=== PATIENT | female | born 2000 | race Hispanic/Latino ===

== ENCOUNTER 2019-05-30 16:47 | Observation (INO) | payer MEDICAID, OTHER ==
[~2019-05-30] VITALS: Ht 154.9 cm; Wt 58.1 kg
[2019-05-30 17:11] VITALS: BP 102/66
[2019-05-30] MEDS: DEXTROSE 5%-LACTATED RINGERS 1,000 ML IV SCH (18:21)
[2019-05-30 18:28] LABS: HEMATOCRIT 33.8 % (36-48); MEAN CORPUSCULAR HEMOGLOBIN 22.5 pg (27.0-33.0); MEAN CORPUSCULAR HGB CONC 32.7 g/dL (32.0-36.0); MEAN CORPUSCULAR VOLUME 68.7 fL (80-100); PLATELET COUNT (AUTO) 236 K/uL (130-400); RED BLOOD CELL COUNT(AUTO) 4.92 MIL/uL (4.00-5.50); RED CELL DISTRIBUTION WIDTH 18.7 % (11.0-15.5); WHITE BLOOD COUNT (AUTO) 6.3 K/uL (4.8-10.8)
[2019-05-30 18:34] LABS: POTASSIUM 3.4 mmol/L (3.5-5.1)
[2019-05-30] MEDS: CEFAZOLIN SODIUM 1 GM VIAL IVP SCH (18:41)
[2019-05-30] MEDS: ONDANSETRON HCL 4 MG/2 ML VIAL IVP PRN (18:41)
[2019-05-30 19:23] VITALS: BP 93/53
--- NOTE | 2019-05-30 19:45 | NUR ---
DR. GAMBLE HERE AND SAW PT; NO NEW ORDERS NOTED AT THIS TIME.
[2019-05-30 23:32] VITALS: BP 93/56
[2019-05-31] MEDS: DEXTROSE 5%-LACTATED RINGERS 1,000 ML IV SCH ×4 (00:58→18:41)
[2019-05-31] MEDS: CEFAZOLIN SODIUM 1 GM VIAL IVP SCH ×3 (01:43→18:37)
[2019-05-31 04:09] VITALS: BP 93/59
[2019-05-31 07:27] VITALS: BP 93/54
--- NOTE | 2019-05-31 08:05 | NUR ---
MD FOX ROUNDING ON PATIENT. POC DISCUSSED. KEEP NPO EXCEPT FOR ICE CHIPS.
[2019-05-31 11:52] VITALS: BP 93/54
[2019-05-31] MEDS: ONDANSETRON HCL 4 MG/2 ML VIAL IVP PRN ×2 (13:26→18:48)
--- NOTE | 2019-05-31 14:45 | NUR ---
RD Notification Pt 10 WKS with Hyperemesis. Upon visit, RD provided Hyperemesis nutrition recommendations. RD reviewed reference materials with Pt. RD discussed with Pt first and development of Hyperemesis. Pt with no questions and displayed minimal interest, however answered all of RD questions and accepted educational materials. RD to continue to monitor. Please notify RD as additional nutrition concerns arise. Thank you. Addendum: 05/31/19 at [address] RD Amended: Links added.
[2019-05-31 16:52] VITALS: BP 93/60
[2019-05-31 19:30] VITALS: BP 103/61
[2019-05-31 23:37] VITALS: BP 99/62
[2019-06-01] MEDS: CEFAZOLIN SODIUM 1 GM VIAL IVP SCH ×2 (01:48→09:59)
[2019-06-01] MEDS: DEXTROSE 5%-LACTATED RINGERS 1,000 ML IV SCH ×2 (01:48→08:33)
[2019-06-01 03:48] VITALS: BP 95/57
[2019-06-01 07:33] VITALS: BP 97/58
[2019-06-01] MEDS: ONDANSETRON HCL 4 MG/2 ML VIAL IVP PRN (10:17)
[2019-06-01 11:21] VITALS: BP 99/52
--- NOTE | 2019-06-01 11:48 | NUR ---
DIET PT STATED WAS ABLE TO EAT 1/2 BANANA AND 1/2 TOAST, NO EMESIS, FELT NAUSEOUS ONLY AFTER ANCEF WAS PUSHED BUT ZOFRAN HELPED NAUSEA GO AWAY
--- NOTE | 2019-06-01 16:35 | NUR ---
DISCHARGE PT STABLE, NO PAIN, NO COMPLAINTS; PT LEFT UNIT, VIA WHEELCHAIR, STILL , ACCOMPANIED BY RN AND SPOUSE CARRYING ALL PERSONAL BELONGINGS, INSTRUCTIONS, AND PRESCRIPTION; PT LEFT FACILITY IN PERSONAL VEHICLE
== END 2019-06-01 16:35 | disposition home or self-care (01) ==
LOC: WSH 16:47 → INTOOBSV 16:47
PROVIDERS: ADMIT Specialist; ATTEND Specialist
DX: O23.41 Unspecified infection of urinary tract in pregnancy, first trimester (principal); O21.0 Mild hyperemesis gravidarum; Z3A.10 10 weeks gestation of pregnancy
CPT/HCPCS: 36415; 80051; 85027; 96361 ×3; 96374; 96375; 96376 ×2; G0378 ×46; J0690 ×6; J2405 ×4

== ENCOUNTER 2020-09-01 10:16 | Observation (INO) | payer OTHER, MEDICAID ==
[~2020-09-01] VITALS: Ht 154.9 cm; Wt 63.5 kg
[~2020-09-01 10:16] MED LIST: FERR-82 PO; ONDA4TAB4 PO; PREN-154 PO
== END 2020-09-01 11:02 | disposition home or self-care (01) ==
LOC: LDH 10:16
PROVIDERS: ADMIT Specialist; ATTEND Specialist
DX: Z34.93 Encounter for supervision of normal pregnancy, unspecified, third trimester (principal); Z3A.30 30 weeks gestation of pregnancy
CPT/HCPCS: 59025; 76819; G0378

== ENCOUNTER 2020-09-04 11:29 | Observation (INO) | payer OTHER, MEDICAID ==
[~2020-09-04] VITALS: Ht 157.5 cm; Wt 66.7 kg
[2020-09-04 12:31] VITALS: BP 104/57
== END 2020-09-04 13:05 | disposition home or self-care (01) ==
LOC: LDH 11:29
PROVIDERS: ADMIT Specialist; ATTEND Specialist
DX: Z34.93 Encounter for supervision of normal pregnancy, unspecified, third trimester (principal); Z3A.30 30 weeks gestation of pregnancy
CPT/HCPCS: 59025; 76819; G0378

== ENCOUNTER 2020-09-08 09:29 | Observation (INO) | payer MEDICAID, OTHER ==
[~2020-09-08] VITALS: Ht 154.9 cm; Wt 64.0 kg
[2020-09-08 09:53] VITALS: BP 108/68
== END 2020-09-08 11:29 | disposition home or self-care (01) ==
LOC: LDH 09:29
PROVIDERS: ADMIT Specialist; ATTEND Specialist
DX: Z34.93 Encounter for supervision of normal pregnancy, unspecified, third trimester (principal); Z3A.31 31 weeks gestation of pregnancy
CPT/HCPCS: 59025; 76819; G0378 ×2

== ENCOUNTER 2020-10-02 14:16 | Observation (INO) | payer MEDICAID, OTHER ==
[~2020-10-02] VITALS: Ht 154.9 cm; Wt 74.4 kg
== END 2020-10-02 15:26 | disposition home or self-care (01) ==
LOC: EDH 14:16 → LDH 14:34
PROVIDERS: ADMIT Specialist; ATTEND Specialist
DX: O69.81X0 Labor and delivery complicated by cord around neck, without compression, not applicable or unspecified (principal); Z3A.34 34 weeks gestation of pregnancy
CPT/HCPCS: 59025; 99284; G0378

== ENCOUNTER 2020-10-11 10:08 | Inpatient (IN) | payer MEDICAID ==
[~2020-10-11] VITALS: Ht 154.9 cm; Wt 64.4 kg
[2020-10-11] MEDS ORDERED: OXYTOCIN-LR 20 UNITS/1000 ML 1,000 ML IV SCH (11:00)
[2020-10-11] MEDS ORDERED: AMPICILLIN 2GM+NS 100ML 100 ML IV SCH (11:00)
[2020-10-11] MEDS ORDERED: MEPERIDINE-PF 50 MG/ML SYG IVP PRN (11:00)
[2020-10-11] MEDS ORDERED: PROMETHAZINE HCL 25 MG/ML 1ML AMPULE IM PRN (11:00)
[2020-10-11 11:31] LABS: HEMATOCRIT 29.3 % (36-48); MEAN CORPUSCULAR HEMOGLOBIN 21.3 pg (27.0-33.0); MEAN CORPUSCULAR HGB CONC 29.7 g/dL (32.0-36.0); MEAN CORPUSCULAR VOLUME 71.6 fL (80-100); NUCLEATED RED BLOOD CELLS 0.4 % (0.0-0.19); PLATELET COUNT (AUTO) 296 K/uL (130-400); RED BLOOD CELL COUNT(AUTO) 4.09 MIL/uL (4.00-5.50); WHITE BLOOD COUNT (AUTO) 5.5 K/uL (4.8-10.8)
[2020-10-11] MEDS: LACTATED RINGERS 1000ML 1,000 ML IV PRN ×2 (11:40→19:38)
[2020-10-11] MEDS: AMPICILLIN 1GM+NS 50ML 50 ML IV SCH ×3 (16:00→19:38)
[2020-10-11 19:30] VITALS: BP 120/70
[2020-10-11] MEDS ORDERED: LIDOCAINE HCL 1% 20 ML VIAL ONE (19:44)
[2020-10-11] MEDS ORDERED: LANOLIN 30GM OINTMENT TP PRN (20:30)
[2020-10-11] MEDS ORDERED: ACETAMINOPHEN WITH CODEINE 1 TAB TAB PO PRN (20:30)
[2020-10-11] MEDS ORDERED: WITCH HAZEL 1 PAD TP PRN (20:30)
[2020-10-11] MEDS ORDERED: ACETAMINOPHEN 325 MG TAB PO PRN (20:30)
[2020-10-11] MEDS ORDERED: BENZOCAINE/LANOLIN/ALOE VERA 60 ML AEROSOL TP PRN (20:30)
[2020-10-11] MEDS: DOCUSATE SODIUM 100 MG CAP PO SCH (21:29)
[2020-10-11] MEDS: IBUPROFEN 600 MG TABLET PO PRN (21:30)
[2020-10-11 22:30] VITALS: BP 110/74
[2020-10-11] MEDS: OXYTOCIN-LR 20 UNITS/1000 ML 1,000 ML IV SCH (22:37)
[2020-10-11 23:13] VITALS: BP 120/74
[2020-10-11 23:55] VITALS: BP 99/62
[2020-10-12 03:29] VITALS: BP 97/56
[2020-10-12 07:11] VITALS: BP 101/66
[2020-10-12] MEDS: IBUPROFEN 600 MG TABLET PO PRN ×3 (08:44→22:55)
[2020-10-12] MEDS: DOCUSATE SODIUM 100 MG CAP PO SCH ×2 (08:44→21:14)
[2020-10-12] MEDS: OXYTOCIN-LR 20 UNITS/1000 ML 1,000 ML IV SCH (11:00)
[2020-10-12 11:55] VITALS: BP 107/59
[2020-10-12 19:23] VITALS: BP 110/67
[2020-10-13 00:32] VITALS: BP 102/60
[2020-10-13 04:22] VITALS: BP 117/78
[2020-10-13 07:24] VITALS: BP 106/68
[2020-10-13 09:10] LABS: HEPATITIS Bs ANTIGEN SCREEN P Negative (Negative)
[2020-10-13] MEDS: IBUPROFEN 600 MG TABLET PO PRN ×2 (09:22→15:14)
[2020-10-13] MEDS: DOCUSATE SODIUM 100 MG CAP PO SCH (09:22)
[2020-10-13 11:05] VITALS: BP 118/67
[2020-10-13 16:20] VITALS: BP 107/66
== END 2020-10-13 16:45 | disposition home or self-care (01) | DRG 560 ==
LOC: EDH 10:08 → OBSVTOIN 10:09 → LDH 10:09 → WSH 22:40
PROVIDERS: ADMIT Specialist; ATTEND Specialist
PROC: 10E0XZZ Delivery of Products of Conception, External Approach (ICD-10-PCS; principal; 2020-10-11)
PROC: 0HQ9XZZ Repair Perineum Skin, External Approach (ICD-10-PCS; 2020-10-11)
DX: O60.14X0 Preterm labor third trimester with preterm delivery third trimester, not applicable or unspecified (principal); O69.1XX0 Labor and delivery complicated by cord around neck, with compression, not applicable or unspecified; O70.0 First degree perineal laceration during delivery; Z37.0 Single live birth; Z3A.36 36 weeks gestation of pregnancy
CPT/HCPCS: 36415; 85027; 86592; 86850; 86900; 86901; 87340; G0378; J0290; J2175; J2550; J2590; J7120